=== PATIENT | male | born 1960 | race Caucasian/White ===

== ENCOUNTER 2016-10-11 18:04 | Emergency (ER) | payer OTHER ==
[~2016-10-11] VITALS: Ht 175.3 cm; Wt 81.0 kg
[2016-10-11] MEDS ORDERED: IBUPROFEN 600MG TABLET PO ONE (22:30)
[2016-10-11 22:44] VITALS: BP 191/107
== END 2016-10-12 01:25 | disposition home or self-care (01) ==
LOC: ER 18:56
DX: M25.562 Pain in left knee (principal); I10 Essential (primary) hypertension
CPT/HCPCS: 73562; 73590; 99284; L1830